=== PATIENT | female | born 1975 | race Caucasian/White ===

== ENCOUNTER 2018-11-01 00:51 | Outpatient (CLI) | payer BC, SELFPAY ==
--- NOTE | 2018-11-01 08:00 | DI.MAMMO_ITS ---
SYMPTOM/DIAGNOSIS: SCREENING, ANNUAL, FAMILY H/O BREAST CA, Z80.3 MAMMOGRAMS: Mammograms were interpreted according to the usual protocol including computer analysis with CAD system, tomosynthesis and C view imaging. This is a baseline examination. The breasts are composed of scattered fibroglandular densities, breast density Category B. There are scattered punctate, benign appearing calcifications scattered in the left breast. No suspicious calcifications are seen. On the MLO view in the posterior superior aspect of the breast, there is a focal nodular asymmetry which could representing overlying fibroglandular tissue. No corresponding abnormality is seen on the CC view. Spot compression views and ultrasound are requested for further evaluation. No abnormality is seen in the right breast. IMPRESSION: Right breast, category 1, negative. Left breast, category 0. SA ASSESSMENT OF FINDINGS: Incomplete: Needs additional imaging evaluation. Category 0. Patient will receive a letter notifying them of these results. BI-RADS category B. There are scattered areas of fibroglandular density.
[2018-11-01 08:03] LABS: Abs Immature Grans 0.01 k/cumm (0.0-0.09); Absolute Basophil Count 0.05 k/cumm (0.0-0.2); Absolute Eosinophil Count 0.17 k/cumm (0.0-0.7); Absolute Monocyte Count 0.82 k/cumm (0.11-0.7); Absolute Neutrophil Count 5.57 k/cumm (1.2-6.7); Basophils % 0.5; Eosinophils % 1.9; HCT 38.1 % (36.0-46.0); HGB 12.4 g/dL (12.0-15.5); Immature Grans % 0.1; Lymphocytes % 27.4; Mean Corp. HGB Concentration 32.5 g/dL (32.0-36.0); Mean Corpuscular Hemoglobin 30.4 pg (27.0-33.0); Mean Corpuscular Volume 93.4 fL (80-95); Mean Platelet Volume 9.5 fL (8.0-11.0); Neutrophils % 61.1; Platelet Count 324 x1000/uL (130-400); RBC 4.08 m/cumm (4.00-5.20); RBC Distribution Width 13.6 % (11.7-14.6); White Blood Cell Count 9.12 k/cumm (4.4-10.8)
[2018-11-01 09:13] LABS: ALT 27 U/L (12-78); AST 13 U/L (15-37); Albumin 3.8 g/dL (3.4-5.0); Alkaline Phosphatase 68 U/L (46-116); Anion Gap 10.1 mmol/L (3-11); BUN 12 mg/dL (7-18); Bilirubin, Total 0.4 mg/dL (0.2-1.0); CO2 24.9 mmol/L (21.0-32.0); CREATININE 0.84 mg/dL (0.55-1.02); Calcium 8.6 mg/dL (8.5-10.1); Chloride 105 mmol/L (98-107); Glucose 96 mg/dL (70-100); Potassium 4.5 mmol/L (3.5-5.1); Sodium 140 mmol/L (136-145)
== END 2018-11-01 01:11 ==
PROVIDERS: PCP Internal Medicine; Visit Provider Internal Medicine
DX: Z12.31 Encounter for screening mammogram for malignant neoplasm of breast (principal); R92.8 Other abnormal and inconclusive findings on diagnostic imaging of breast; Z00.00 Encounter for general adult medical examination without abnormal findings; Z80.3 Family history of malignant neoplasm of breast; R53.83 Other fatigue
CPT/HCPCS: 36415; 77063; 77067; 80053; 84443; 85025

== ENCOUNTER 2018-11-09 01:10 | Outpatient (CLI) | payer BC, SELFPAY ==
--- NOTE | 2018-11-09 14:00 | DI.COMBO_ITS ---
SYMPTOMS/DIAGNOSIS: F/U ABNORMAL MAMMO, NODULAR ASYMMETRY ADDITIONAL VIEWS OF THE LEFT BREAST AND LEFT BREAST ULTRASOUND: Spot compression view of the left breast shows no definite persistent mass. Left breast ultrasound was performed. The upper outer and upper inner quadrants of the left breast were evaluated sonographically. No cystic or solid masses are seen sonographically. IMPRESSION: No definite evidence for malignancy. A three-month follow-up left mammogram is requested for reevaluation. Category 3, breast density B. The findings were discussed with the patient on the date of the examination. MQSA ASSESSMENT OF FINDINGS: Probably benign. Three-month follow-up recommended. Category 3. Patient will receive a letter notifying them of these results. BI-RADS category B. There are scattered areas of fibroglandular density.
== END 2018-11-09 01:30 ==
PROVIDERS: PCP Internal Medicine; Visit Provider Internal Medicine
DX: Z12.31 Encounter for screening mammogram for malignant neoplasm of breast (principal); R92.8 Other abnormal and inconclusive findings on diagnostic imaging of breast; N64.59 Other signs and symptoms in breast
CPT/HCPCS: 76642; 77063; 77067

== ENCOUNTER 2019-02-21 14:37 | Outpatient (CLI) | payer BC, SELFPAY ==
--- NOTE | 2019-02-21 14:50 | DI.MAMMO_ITS ---
SYMPTOM/DIAGNOSIS: 3 MO F/U ABNL MAMMO, R92.8 LEFT MAMMOGRAM: Mammograms were interpreted according to the usual protocol including computer analysis with CAD system, tomosynthesis and C view imaging. This is a 3 month follow up from 10/2018. An area of focal asymmetry was questioned on the MLO view. The left breast is composed of scattered fibroglandular densities, breast density, Category B. The previously questioned area of focal asymmetry in the superior left breast is not present on the current exam. The findings are consistent with overlying fibroglandular tissue. Scattered calcifications are again noted in the upper and outer left breast which appear unchanged. IMPRESSION: Category 2, negative mammogram with benign findings. Bilateral screening should be resumed in October,. [facility] ASSESSMENT OF FINDINGS: Negative with benign findings. Category 2. Patient will receive a letter notifying them of these results. BI-RADS category B. There are scattered areas of fibroglandular density.
== END 2019-02-21 14:57 ==
PROVIDERS: PCP Internal Medicine; Visit Provider Internal Medicine
DX: Z12.31 Encounter for screening mammogram for malignant neoplasm of breast (principal); R92.8 Other abnormal and inconclusive findings on diagnostic imaging of breast; R92.1 Mammographic calcification found on diagnostic imaging of breast; N64.59 Other signs and symptoms in breast
CPT/HCPCS: 77061; 77065; G0279

== ENCOUNTER 2019-06-25 09:58 | Outpatient (REF) | payer BC, SELFPAY ==
--- NOTE | 2019-06-25 09:25 | PAPFT_PTH ---
PATIENT: Angelica Santiago LOC: [facility] U#:[id number] AGE/SX: 43/F ROOM: RE06/25/[address]: Anabell Cabezas MD : 1975 BED: DIS: 06/25/2019 SPEC #: [id number] RECD: 06/25/19 12:49 STATUS: TRICIA [place] #: [id number] CAROL: 06/25/19 09:[address]: Anabell José DEPT: [facility] Cytology RECD BY: Dasia Sabillon Tissues: 1 - CX/ENDOCX FOR PAP SMEARS Procedures: PAP THIN PREP/UVM Screening HPV DNA PROBE Comments: [id number]
== END 2019-06-25 10:18 ==
LOC: LBN 09:58
PROVIDERS: PCP Internal Medicine; Visit Provider Internal Medicine
DX: Z12.4 Encounter for screening for malignant neoplasm of cervix (principal); Z11.51 Encounter for screening for human papillomavirus (HPV)
CPT/HCPCS: 88142; 87624

== ENCOUNTER 2021-01-13 00:46 | Outpatient (CLI) | payer BC, SELFPAY ==
--- NOTE | 2021-01-13 13:15 | DI.MAMMO_ITS ---
EXAM: MAMMO SCREENING CLINICAL HISTORY: screening,Z12.39 TECHNIQUE: Mammograms were interpreted according to the usual protocol including computer analysis w [employer] CAD system, tomosynthesis and C-view imaging. COMPARISON: FINDINGS: The breasts are of moderate density with fairly symmetrical distribution of fibroglandular tissue. N o dominant mass is identified in either breast. There are numerous microcalcifications seen bilatera lly. No new clumps of microcalcification are seen. Microcalcifications are essentially unchanged in comparison with prior studies including January 2019. In comparison with the prior examination there is question of interval development of a poorly define d new area of increased radiodensity projected in the upper outer quadrant of the left breast on CC a nd MLO views. Additional mammographic views of this area and breast ultrasound are requested to eval uate the possibility of a new mass. No other significant change seen. IMPRESSION: Additional mammographic views of the left breast and left breast ultrasound requested to evaluate p ossible new asymmetric density or mass in the upper outer quadrant of the breast, this lies about 12 cm from the nipple on MLO view and about 13 cm from the nipple on CC view. BI-RADS Category 0 - Assessment Incomplete: Need additional imaging evaluation Breast Density - Category B - Scattered areas of fibroglandular density
== END 2021-01-13 00:47 ==
LOC: DI 00:47
PROVIDERS: PCP Nurse Practitioner; Visit Provider Nurse Practitioner
DX: Z12.31 Encounter for screening mammogram for malignant neoplasm of breast (principal); R92.8 Other abnormal and inconclusive findings on diagnostic imaging of breast
CPT/HCPCS: 77063; 77067

== ENCOUNTER 2021-02-02 01:28 | Outpatient (CLI) | payer BC, SELFPAY ==
--- NOTE | 2021-01-16 14:12 | DI.MAMMO_ITS ---
EXAM: MG MAMMO SCREEN CALL BACK UNI CLINICAL HISTORY: F/U MAMMO,? NEW LT BREAST RADIODENSITY OR MASS TECHNIQUE: Spot compression views and tomographic imaging were performed. COMPARISON: 13 January 2021 and exams from 2017 and 2018. FINDINGS: Spot compression views of the upper and outer quadrants were performed. No suspicious masses or susp icious microcalcifications are seen. Scattered, benign-appearing calcifications are again noted in t he left breast. No persistent abnormality is seen on the additional views performed. The findings are consistent wit h overlying fibroglandular tissue. There has been no significant change from prior exams. IMPRESSION: BI-RADS Category 2 - Benign Findings Yearly screening mammography is recommended. Breast Density - Category B, scattered fibroglandular densities.
== END 2021-02-02 01:48 ==
PROVIDERS: PCP Nurse Practitioner; Visit Provider Nurse Practitioner
DX: Z12.31 Encounter for screening mammogram for malignant neoplasm of breast (principal); R92.8 Other abnormal and inconclusive findings on diagnostic imaging of breast; N64.59 Other signs and symptoms in breast
CPT/HCPCS: 77063; 77067

== ENCOUNTER 2022-01-21 01:31 | Outpatient (CLI) | payer BC, SELFPAY ==
[2022-01-21 08:36] LABS: Hemoglobin A1C 5.5 % (<5.7)
[2022-01-21 09:31] LABS: Calculated LDL 108 mg/dL (<100); Cholesterol 190 mg/dL (<200); HDL Cholesterol 41 mg/dL (40-60); Triglyceride 207 mg/dL (<150)
== END 2022-01-21 01:32 | disposition home or self-care (01) ==
LOC: LBO 01:32
PROVIDERS: PCP Nurse Practitioner; Visit Provider Nurse Practitioner
DX: Z13.1 Encounter for screening for diabetes mellitus (principal); Z13.6 Encounter for screening for cardiovascular disorders
CPT/HCPCS: 36415; 80061; 83036

== ENCOUNTER 2023-03-14 12:45 | Outpatient (CLI) | payer BC, SELFPAY ==
[2023-03-14 07:16] LABS: HCT 40.6 % (36.0-46.0); HGB 13.4 g/dL (11.2-15.7); MCH 30.9 pg (27.0-33.0); MCV 94 fL (80-95); MPV 9.1 fL (8.0-11.0); Platelet Count 304 10^3/uL (130-400); RBC 4.34 10^6/uL (3.93-5.22); RDW 13.1 % (11.7-14.6); RDW-SD 44.7 fL; WBC 9.17 10^3/uL (4.4-10.8)
[2023-03-14 08:03] LABS: ALT 34 U/L (14-59); AST 15 U/L (15-37); Albumin 3.7 g/dL (3.4-5.0); Alkaline Phosphatase 67 U/L (46-116); Anion Gap 10.5 mmol/L (3-11); BUN 13 mg/dL (7-18); Bilirubin, Total 0.4 mg/dL (0.2-1.0); CO2 25.5 mmol/L (21.0-32.0); CREATININE 0.9 mg/dL (0.55-1.02); Calcium 8.7 mg/dL (8.5-10.1); Calculated LDL 124 mg/dL (<100); Chloride 106 mmol/L (98-107); Cholesterol 214 mg/dL (<200); Estimated GFR 79.85 (mL/min/1.73m2); Glucose 100 mg/dL (74-106); HDL Cholesterol 42 mg/dL (40-60); Potassium 4.1 mmol/L (3.5-5.1); Sodium 142 mmol/L (136-145); TSH (W/Ref FT4) 4.89 uIU/mL (0.36-3.74); Total Protein 7.4 g/dL (6.4-8.2); Triglyceride 244 mg/dL (<150)
[2023-03-14 08:29] LABS: FREE T4 0.88 ng/dL (0.76-1.46)
== END 2023-03-14 12:46 | disposition home or self-care (01) ==
LOC: LBO 12:45
PROVIDERS: PCP Nurse Practitioner Family; Visit Provider Nurse Practitioner Family
DX: Z00.00 Encounter for general adult medical examination without abnormal findings (principal); F17.210 Nicotine dependence, cigarettes, uncomplicated; E66.9 Obesity, unspecified; Z86.39 Personal history of other endocrine, nutritional and metabolic disease
CPT/HCPCS: 36415; 80053; 80061; 85027; 84439; 84443

== ENCOUNTER 2023-04-04 02:28 | Outpatient (CLI) | payer BC, SELFPAY ==
--- NOTE | 2023-04-04 08:45 | DI.MAMMO_ITS ---
Exam(s) MAMMO SCREENING EXAM: MAMMO SCREENING CLINICAL HISTORY: screening,z12.39 TECHNIQUE: Mammograms were interpreted according to the usual protocol including computer analysis w [employer] CAD system, tomosynthesis and C-view imaging. COMPARISON: 2017 through 2020 FINDINGS: The breasts are composed of scattered fibroglandular densities, Breast Density category B. No suspicious masses or suspicious microcalcifications are seen. Scattered benign calcifications aga in noted in the left breast. No skin thickening or abnormal axillary lymph nodes are seen. There has been no significant change from prior exams. IMPRESSION: BI-RADS Category 1, Negative mammogram Yearly screening mammography is recommended. Breast Density - Category B, scattered fibroglandular densities. A negative radiographic report should not delay biopsy if a dominant or clinically suspicious mass is present. Up to ten percent of cancers are not identified on mammography. A negative report may reinforce clinical impression. Adenosis and dense breasts may obscure an underlying neoplasm. False positive reports average 6 to 10%. Patient will receive a letter notifying them of these results.
== END 2023-04-04 02:48 ==
PROVIDERS: PCP Nurse Practitioner Family; Visit Provider Nurse Practitioner Family
DX: Z12.31 Encounter for screening mammogram for malignant neoplasm of breast (principal)
CPT/HCPCS: 77063; 77067

== ENCOUNTER 2023-05-04 06:08 | Day surgery (SDC) | payer BC, SELFPAY ==
[2023-05-04 06:22] VITALS: BP 128/87; PULSE 70; RESP 16; TEMP 36.4; O2SAT 96
[2023-05-04] MEDS: Lactated Ringers 1,000 ML 80 ML IV (06:42)
--- NOTE | 2023-05-04 06:58 | W.ANESPRE ---
General Info Date of Service Date Performed: 05/04/23 Height: 5 ft 9 in Weight: 120.8 kg Body Mass Index (BMI): 39.3 Surgical Procedure: Operation Date: 05/04/23 07:35 Proposed Procedure Side Surgeon p Rebekah Shahid MD Meds Allergies and Home Medications Allergies Allergy/AdvReac Type Severity Reaction Status Date / Time No Known Allergies Allergy Verified 05/04/23 06:21 Current Visit Medications: Current Medications Generic Name Dose Route Start Last Admin Trade Name Freq PRN Reason Stop Dose Admin Ringer's Solution 1,000 mls @ 80 mls/hr 05/04/23 06:00 05/04/23 06:42 IV 06/02/23 23:59 80 mls/hr INFUSION CONNOR Administration IV Miscellaneous Supplies 1 each 05/04/23 06:00 Iv Access IV 06/02/23 23:59 DIRECTED CONNOR Sodium Chloride 0 ml 05/04/23 06:00 Normal Saline Flush 10 Ml Syr IV 06/02/23 23:59 PRN PRN Sodium Chloride 0 ml 05/04/23 06:00 Normal Saline 10 Ml Vial IJ 06/02/23 23:59 DIRECTED PRN Sterile Water 0 ml 05/04/23 06:00 Water,Injection,Sterile 10 Ml Vial IJ 06/02/23 23:59 DIRECTED PRN PFSH Active Problems Active Problems: Problem Status Onset Code Elevated TSH R79.89 Obesity (BMI 30-39.9) E66.9 Tobacco dependence F17.200 History of hyperlipidemia Z86.39 Medical History Medical History Excessive drinking alcohol 12/2021- stopped drinking this summer Family history of breast cancer sister at age 44, braca neg Fibroid uterus hysterectomy Spring 2020; as one ovary Infertility, female Lipoma of arm right shoulder- doesn't want removal Obesity, Class III, BMI 40-49.9 (morbid obesity) Surgical History Surgical History S/P hysterectomy One ovary remaining Tobacco Smoking/Tobacco Use Status: Current every day Tobacco Type: cigarettes Passive smoking exposure: Yes Second hand exposure: Yes Alcohol Alcohol Intake: current Alcohol intake frequency: a few times a week Alcohol type: beer and hard liquor Substance Use Substance use: Socially Substance use type: marijuana Vital Signs and Lab Results Vital Signs Most Recent Vital Signs in EMR: Most Recent Vital Signs Temp Pulse Resp BP Pulse Ox 36.4 C L 70 16 128/87 96 05/04/23 06:22 05/04/23 06:22 05/04/23 06:22 05/04/23 06:22 05/04/23 06:22 Lab Results Blood Type / Crossmatch: No Data to Display Complete Blood Count: No Data to Display Complete Metabolic Panel: No Data to Display Liver Function Panel: No Data to Display Coagulation Panel: No Data to Display Cardiac Panel: No Data to Display Arterial Blood Gas: No Data to Display Venous Blood Gas: No Data to Display Pancreas Panel: No Data to Display Thyroid Panel: No Data to Display Infectious Disease: No Data to Display Blood Cultures: No Data to Display Toxicology Panel: No Data to Display Panel: No Data to Display Anesthesia Assessment and Plan Anesthesia History Personal History: No History of Anesthesia Complications Family History: No Family History of Anesthesia Complications Exercise Tolerance Exercise Tolerance: Metabolic Equivalents>4 Pertinent Negatives Pertinent Negatives: No Symptoms of GERD, No Major Cardiovascular Symptoms or Complaints, No Major Pulmonary Symptoms or Complaints and No History of CVA/TIA Cardiac & Pulmonary Exam Cardiac Exam: Normal S1/S2 Heart Sounds Pulmonary Exam: Clear Bilateral Breath Sounds Implantable Cardiac Device Does patient have a Pacemaker or an ICD?: No Airway Exam Known Difficult Airway: No Mallampati Class: 3 Mouth Opening: Normal (> 3cm) Thyromental Distance: Greater than 3 cm Neck Range of Motion: Full ROM Neck Circumference: Thick Teeth Condition: Normal Dentition ASA Classification ASA Score: ASA 3 Emergency Case?: No NPO Status NPO Status: NPO Clears >2 hours, Solids >8 hours Status Status: History of Hysterectomy Anesthesia Plan Resuscitation Status: Full Code Anesthesia Technique: General Anesthesia Airway Planned: Natural Airway Monitors Used: Standard Monitors
[2023-05-04 07:22] VITALS: BMI 39.3
--- NOTE | 2023-05-04 07:52 | BOWEL_PTH ---
PATIENT: Angelica Santiago LOC: [facility] U#:[id number] AGE/SX: 47/F ROOM: RE05/04/[address]: Francisco Shahid : 1975 BED: DIS: 05/04/2023 SPEC #: [id number] RECD: 05/04/23 10:45 STATUS: TRICIA [facility] #: [id number] CAROL: 05/04/23 07:[address]: Francisco Shahid DEPT: Surgical Specimen RECD BY: Dasia Sabillon ENTERED: 05/04/23 10:47 SP TYPE: Bowel OTHR DR: Vandana Gonzalez, [employer] Tissues: 1 - BIOPSY BOWEL 2 - BIOPSY BOWEL 3 - BIOPSY BOWEL 4 - BIOPSY BOWEL Procedures: GROSS AND MICRO LEVEL 4 Comments:
[2023-05-04 08:05] VITALS: BP 122/73; PULSE 66; RESP 18; TEMP 36.4; O2SAT 98
--- NOTE | 2023-05-04 08:19 | W.COLOREPORT ---
Date of service: 05/04/23 Time of Service: 08:05 Colonoscopy Report Procedure Description: Procedures performed: 1. Colonoscopy with cold forceps polypectomy x4 Preoperative diagnosis: Screening colonoscopy Postoperative diagnosis: Colon polyps Surgeon: Berry Shahid Anesthesia: Millicent Indication for procedure: 47-year-old woman has never had a screening colonoscopy before. She does not have any symptoms. She does not have a family history of colon cancer. Findings: 4 small 2-3 mm sessile polyps removed from the transverse, sigmoid and rectum with cold forceps technique. Visibly they look like hyperplastic polyps. They are not suspected to be adenomatous. No other findings. Surveillance/follow-up recommendations: Probably 10 years as long as the polyps were hyperplastic. If they are adenomatous by chance (not suspected) then repeat in 7-10 years. Complications: None Blood loss: Minimal Specimens:?? YES Quality of Prep:?? Good Procedure in detail: Written consent was obtained from the patient who was in agreement with the risks, benefits and indications of the procedure.? We went to the endoscopy suite and laid the patient in left lateral decubitus position.? Anesthesia was administered which was tolerated well.? A timeout was performed and when we are all in agreement we began the procedure. Digital rectal exam and visual examination was performed and within normal limits.? A well?lubricated colonoscope was advanced without difficulty all the way to the cecum identified by the ileocecal valve, and triangular folds and appendiceal orifice.? It was then slowly withdrawn.?? Retroflexion was performed in the rectum.? The findings/interventions are noted above. The scope was then removed and the patient tolerated the procedure well and was then taken back to the PACU in hemodynamically stable condition.
[2023-05-04 08:35] VITALS: BP 128/83; PULSE 72; RESP 18; TEMP 36.5; O2SAT 96
--- NOTE | 2023-05-04 08:50 | W.ANESPOSTOP ---
Postoperative Evaluation Date, Time and Location Date Performed: 05/04/23 Time Performed: 08:07 Patient Location: Day Surgery Unit Vital Signs Most Recent Imported Vital Signs: Most Recent Vital Signs Temp Pulse Resp BP Pulse Ox 36.5 C 72 18 128/83 96 05/04/23 08:35 05/04/23 08:35 05/04/23 08:35 05/04/23 08:35 05/04/23 08:35 Pain Score Most Recent Pain Score: Most Recent Pain Score Pain Level 0 05/04/23 08:35 Assessment Mental Status: Awake (Alert & Oriented to Patient Baseline) Airway and Respiratory Function: Patent airway with normal (patient baseline) respiratory exam Cardiovascular Function: Hemodynamically Stable Hydration Status: Adequately Hydrated Nausea & Vomiting: No Nausea or Vomiting Pain: Pt. Denies Any Pain Peripheral Nerve Block: Patient did not receive a nerve block
== END 2023-05-04 08:50 | disposition home or self-care (01) ==
PROVIDERS: PCP Nurse Practitioner Family; Visit Provider Student in an Organized Health Care Education/Training Program
PROC: 0DJD8ZZ Inspection of Lower Intestinal Tract, Via Natural or Artificial Opening Endoscopic (ICD-10-PCS; CPT 45378; principal; 2023-05-04 07:30)
DX: Z12.11 Encounter for screening for malignant neoplasm of colon (principal); K63.5 Polyp of colon; K62.1 Rectal polyp
CPT/HCPCS: 45380; 88305; J2405

== ENCOUNTER 2023-06-24 10:00 | Outpatient (CLI) | payer BC, SELFPAY ==
[2023-06-24 10:11] LABS: TSH (W/Ref FT4) 3.46 uIU/mL (0.36-3.74)
== END 2023-06-24 10:01 | disposition home or self-care (01) ==
LOC: LBO 10:00
PROVIDERS: PCP Nurse Practitioner Family; Visit Provider Nurse Practitioner Family
DX: R79.89 Other specified abnormal findings of blood chemistry (principal); Z86.39 Personal history of other endocrine, nutritional and metabolic disease
CPT/HCPCS: 36415; 84443

== ENCOUNTER → 2024-04-20 01:09 | Outpatient (CLI) | payer BC, SELFPAY ==
--- NOTE | 2024-04-20 08:48 | DI.MAMMO_ITS ---
Exam(s) MAMMO SCREENING EXAM: MAMMO SCREENING CLINICAL HISTORY: screening,z12.39 TECHNIQUE: Mammograms were interpreted according to the usual protocol including computer analysis w [employer] CAD system, tomosynthesis and C-view imaging. COMPARISON: 2017 through 2022 FINDINGS: The breasts are composed of scattered fibroglandular densities, Breast Density category B. No suspicious masses or suspicious microcalcifications are seen. Stable area of nodularity in the up per outer quadrant the left breast since 2018. No skin thickening or abnormal axillary lymph nodes are seen. There has been no significant change from prior exams. IMPRESSION: . BI-RADS Category 2 - Negative Mammogram with benign findings. Yearly screening mammography is recomm ended. Breast Density - Category B, scattered fibroglandular densities. A negative radiographic report should not delay biopsy if a dominant or clinically suspicious mass is present. Up to ten percent of cancers are not identified on mammography. A negative report may reinforce clinical impression. Adenosis and dense breasts may obscure an underlying neoplasm. False positive reports average 6 to 10%. Patient will receive a letter notifying them of these results.
== END ==
PROVIDERS: PCP Nurse Practitioner Family; Visit Provider Nurse Practitioner Family
DX: Z12.31 Encounter for screening mammogram for malignant neoplasm of breast (principal)
CPT/HCPCS: 77063; 77067

== ENCOUNTER 2025-02-01 00:44 | Outpatient (CLI) | payer SELFPAY ==
[2025-02-01 07:48] LABS: Hemoglobin A1C 5.6 % (<5.7)
[2025-02-01 08:17] LABS: ALT 51 U/L (14-59); AST 28 U/L (15-37); Albumin 3.8 g/dL (3.4-5.0); Alkaline Phosphatase 80 U/L (46-116); BUN 11 mg/dL (7-18); Bilirubin, Total 0.2 mg/dL (0.2-1.0); Chloride 110 mmol/L (98-107); Estimated GFR 69.49 (mL/min/1.73m2); Glucose 82 mg/dL (74-106); Sodium 145 mmol/L (136-145); Total Protein 7.4 g/dL (6.4-8.2)
[2025-02-04 10:02] LABS: Insulin 33.4 uIU/mL (<29.0)
== END 2025-02-01 00:45 | disposition home or self-care (01) ==
LOC: LBO 00:44
PROVIDERS: PCP Nurse Practitioner Family; Visit Provider Family Medicine
DX: E66.812 Obesity, class 2 (principal); Z68.37 Body mass index [BMI] 37.0-37.9, adult
CPT/HCPCS: 36415; 80053; 83036; 83525

== ENCOUNTER 2025-04-23 01:13 | Outpatient (CLI) | payer OTHER, SELFPAY ==
--- NOTE | 2025-04-23 07:30 | DI.MAMMO_ITS ---
Exam(s) MAMMO SCREENING EXAM: MAMMO SCREENING CLINICAL HISTORY: screening,Z12.39. TECHNIQUE: Bilateral full field digital CC and MLO mammographic images were obtained with 3D tomosyn thesis and utilizing computer aided detection (CAD). COMPARISON: Prior mammograms were reviewed. FINDINGS: There has been no significant change in the appearance and distribution of the fibroglandular tissue. Asymmetric density in the upper quadrant of the left breast is unchanged from 2018. There are no new spiculated masses nor malignant appearing microcalcification groups. There is no significant architectural distortion nor skin thickening-retraction. IMPRESSION: Stable benign findings. No radiographic evidence of malignancy. BI-RADS Category 1 - Negative Breast Density - Category B - There are scattered areas of fibroglandular density. Breast density Category C or D implies that the patient has dense breast tissue. Dense breast tissue can make it harder to find cancer on a mammogram. Dense breast tissue is also associated with an incr eased risk of breast cancer. This information about the result of the mammogram report was provided to the patient to raise their awareness. Use this report when you speak with the patient about their risks for breast cancer, which includes their family history. At that time, you may recommend additional screening tests (Ultrasoun d or MRI) as these tests may add significant information. A negative radiographic report should not delay biopsy if a dominant or clinically suspicious mass is present. Up to ten percent of cancers are not identified on mammography. A negative report may reinforce clinical impression. Adenosis and dense breasts may obscure an underlying neoplasm. False positive reports average 6 to 10%. Patient will receive a letter notifying them of these results.
== END 2025-04-23 01:33 ==
LOC: DI 01:13
PROVIDERS: PCP Nurse Practitioner Family; Visit Provider Nurse Practitioner Family
DX: Z12.31 Encounter for screening mammogram for malignant neoplasm of breast (principal); R92.323 Mammographic fibroglandular density, bilateral breasts
CPT/HCPCS: 77063; 77067